=== PATIENT | female | born 1965 | race Caucasian/White ===

== ENCOUNTER 2021-08-10 06:54 | Day surgery (SDC) | payer BC ==
[2021-08-08 11:43] VITALS: BMI 37.4
[~2021-08-10 06:54] MED LIST: LACTATED RINGERS 1,000 ML IV SCH
[2021-08-10 07:33] VITALS: RESP 16; TEMP 97.1
[2021-08-10 07:43] LABS: Glucose,Whole Blood 116 mg/dL (75-99)
[2021-08-10] MEDS ORDERED: LACTATED RINGERS 1,000 ML IV ONE (07:43)
[2021-08-10] MEDS ORDERED: LIDOCAINE 1% INJ 10MG/ML (20 ML MDV) ONE (07:45)
[2021-08-10] MEDS ORDERED: PROPOFOL 10 MG/ML 20 ML VIAL IV ONE (07:45)
--- NOTE | 2021-08-10 07:59 | P.PCN ---
Date of Procedure: 08/10/21 Procedure(s) Performed: BRIEF HISTORY: Patient is a 56-year-old pleasant white female scheduled for an elective colonoscopy as a part of screening for colorectal neoplasia. PROCEDURE PERFORMED: Colonoscopy. PREOPERATIVE DIAGNOSIS: Screening for colon cancer. IV sedation per Anesthesia. PROCEDURE: After informed consent was obtained, the patient, was brought into the endoscopy unit. IV sedation was administered by Anesthesia under continuous monitoring. Digital rectal examination was normal. Initially the Olympus CF-160 flexible video colonoscope was then inserted in the rectum, gradually advanced into the cecum without any difficulty. Careful examination was performed as the scope was gradually being withdrawn. Ileocecal valve and the appendiceal orifice were visualized and appeared normal. Prep was excellent. Mucosa of the cecum, ascending colon, transverse colon, descending colon, sigmoid colon, and rectum appeared normal. Scattered sigmoid diverticulosis. Retroflexion was performed in the rectum and no lesions were seen. The patient tolerated the procedure well. IMPRESSION: Normal-appearing colon from rectum to cecum no evidence of colorectal neoplasia . Scattered sigmoid diverticulosis. RECOMMENDATIONS: Findings of this examination were discussed with the patient as well as a family.. She was advised to have a repeat screening colonoscopy in 10 years
[2021-08-10 08:06] VITALS: BP 146/89; PULSE 60
== END 2021-08-10 08:38 | disposition home or self-care (01) ==
LOC: ORWHC2ENDO 06:54
PROVIDERS: ATTEND Internal Medicine Gastroenterology
DX: Z12.11 Encounter for screening for malignant neoplasm of colon (principal); K57.30 Diverticulosis of large intestine without perforation or abscess without bleeding; E78.5 Hyperlipidemia, unspecified; E11.9 Type 2 diabetes mellitus without complications; Z79.84 Long term (current) use of oral hypoglycemic drugs; Z79.82 Long term (current) use of aspirin; Z79.899 Other long term (current) drug therapy; Z91.018 Allergy to other foods
CPT/HCPCS: J2001; J2704; G0121

== ENCOUNTER → 2021-08-29 | Outpatient (CLI) | payer BC ==
--- NOTE | 2021-08-30 13:47 | MM ---
Reason for exam: screening (asymptomatic). Last mammogram was performed 15 years and 8 months ago. Physical Findings: A clinical breast exam by your physician is recommended on an annual basis and results should be correlated with mammographic findings. MG 3D Screening Mammo W/Cad Bilateral CC and MLO view(s) were taken. Prior study comparison: August 08, 2005, bilateral screening mammogram w/CAD. The breast tissue is heterogeneously dense. This may lower the sensitivity of mammography. There are benign appearing round calcifications bilaterally. There is chronic nodularity in the left axilla, stable. There is no discrete abnormality. ASSESSMENT: Benign, BI-RAD 2 RECOMMENDATION: Routine screening mammogram of both breasts in 1 year.
== END | disposition home or self-care (01) ==
LOC: RADMAMWWP 15:36
PROVIDERS: ATTEND Family Medicine
DX: Z12.31 Encounter for screening mammogram for malignant neoplasm of breast (principal)
CPT/HCPCS: 77063; 77067

== ENCOUNTER → 2022-05-14 | Outpatient (CLI) | payer BC ==
[2022-05-14 22:28] LABS: Basophils # (A) 0.05 X 10*3/uL (0.00-0.10); Basophils % (A) 0.7 %; Eosinophils # (A) 0.13 X 10*3/uL (0.04-0.35); Eosinophils % (A) 1.9 %; HCT 41.2 % (37.2-46.3); HGB 12.7 g/dL (12.0-15.0); Immature Grans, Automated 0.3 %; Lymphocytes # (A) 1.95 X 10*3/uL (0.90-5.00); Lymphocytes % (A) 28.8 %; MCHC 30.8 g/dL (32.0-37.0); MCV 94.1 fL (80.0-97.0); Mean Platelet Volume 10.1 fL (9.5-12.2); Monocytes # (A) 0.42 X 10*3/uL (0.20-1.00); Monocytes % (A) 6.2 %; NRBC Per 100 WBC 0 /100 WBCS (0.0-0.0); Neutrophils # (A) 4.21 X 10*3/uL (1.80-7.70); Neutrophils % (A) 62.1 %; Platelet Count 330 X 10*3/uL (140-440); RBC 4.38 X 10*6/uL (4.10-5.20); RDW 13.2 % (11.5-14.5); WBC 6.78 X 10*3/uL (4.50-10.00)
[2022-05-14 22:34] LABS: Anion Gap 9.9 mmol/L (10.00-18.00); Carbon Dioxide 26.1 mmol/L (20.0-27.5)
== END | disposition home or self-care (01) ==
LOC: LABPAT 15:13
PROVIDERS: ATTEND Orthopaedic Surgery Hand Surgery
DX: Z01.812 Encounter for preprocedural laboratory examination (principal); R22.31 Localized swelling, mass and lump, right upper limb
CPT/HCPCS: 80051; 85025

== ENCOUNTER 2022-05-22 08:10 | Day surgery (SDC) | payer BC ==
--- NOTE | 2022-05-20 09:14 | P.HPOR ---
History of Present Illness H&P Date: 05/20/22 Chief Complaint: Right middle finger soft tissue mass Subjective: This is a 56 year old female that presents today for initial evaluation regarding a right middle finger soft tissue mass that has been present for 4 years. She first noticed the cyst after a burn with a soldering tool. SInce then she states she has had this blister type mass on the dorsal aspect of the right middle finger. It causes her occasional discomfort and limits range of motion. Physical Examination: RUE: AIN/PIN/Radial/Ulnar/Median motor intact. Radial/Ulnar/Median SILT. 2+/4 Radial/Ulnar pulses palpated. 5/5 APB, 5/5 FDI. Negative Finkelsteins, negative CMC grind, negative Durkan's compression. 5x5mm cystic mass that transilluminates present on dorsal aspect of right middle finger overlying DIP joint. Imaging: X-Rays of the right middle finger demonstrate DIP joint arthritis with bone spurring. Impression: 1.) Right middle finger soft tissue mass, possible mucous cyst. Plan: Diagnosis and treatment options were discussed with the patient. She has failed conservative treatment of the mass and wishes to have it taken out. Risks and benefit of surgery including bleeding, infection, damage to surrounding tissue, need for further surgery, residual numbness were discussed and the patient wished to go forward with surgery. Surgery will be scheduled in the near future. -Bahman Arauz DO Orthopedic Hand/Upper Extremity Surgeon Medications and Allergies Home Medications Medication Instructions Recorded Confirmed Type Aspirin [Adult Low Dose Aspirin EC] 81 mg PO DAILY 08/08/21 08/08/21 History Atorvastatin [Lipitor] 40 mg PO DAILY 08/08/21 08/08/21 History Cetirizine HCl 10 mg PO DAILY 08/08/21 08/08/21 History Cholecalciferol [Vitamin D3 (25 50 mcg PO DAILY 08/08/21 08/08/21 History Mcg = 1000 Iu)] metFORMIN HCL 500 mg PO BID 08/08/21 08/08/21 History Allergies Allergy/AdvReac Type Severity Reaction Status Date / Time sesame oil Allergy Rash/Hives Verified 08/10/21 07:28 tree nut [Pecan] Allergy Sores on Verified 08/10/21 07:28 tongue walnut Allergy Sores on Verified 08/10/21 07:28 tongue Physical Examination Osteopathic Statement: *. No significant issues noted on an osteopathic structural exam other than those noted in the History and Physical/Consult.
[~2022-05-22 08:10] MED LIST changes: +DEXAMETHASONE SOD PHOSPHATE 4 MG/ML 1 ML VIAL IV ONE; +ONDANSETRON 4 MG/2 ML VIAL IVP ONE; +fentaNYL (PF) 50 MCG/ML 2 ML AMP IV PRN
[2022-05-22 08:35] VITALS: RESP 16; TEMP 97.3
[2022-05-22 08:44] LABS: Glucose,Whole Blood 88 mg/dL (70-110)
[2022-05-22] MEDS ORDERED: LIDOCAINE 1% INJ 10MG/ML (20 ML MDV) SQ ONE ×2 (08:57→09:10)
[2022-05-22] MEDS ORDERED: BUPIVACAINE (PF) 0.5% 30 ML VIAL SQ ONE ×2 (08:57→09:10)
[2022-05-22] MEDS ORDERED: MIDAZOLAM 2 MG/2 ML VIAL ONE (09:00)
[2022-05-22] MEDS ORDERED: LIDOCAINE 2% INJ 20 MG/ML (2 ML VIAL) ONE (09:00)
[2022-05-22] MEDS ORDERED: fentaNYL (PF) 50 MCG/ML 2 ML AMP ONE (09:00)
[2022-05-22] MEDS ORDERED: PROPOFOL 10 MG/ML 20 ML VIAL IV ONE (09:00)
[2022-05-22 09:56] VITALS: BP 125/78; PULSE 54
--- NOTE | 2022-05-22 10:26 | P.OP ---
Date of Procedure: 05/22/22 Preoperative Diagnosis: 1.) Right middle finger soft tissue mass 1x1cm 2.) Right middle finger DIP arthritis Postoperative Diagnosis: 1.) Right middle finger soft tissue mass 1x1cm 2.) Right middle finger DIP arthritis Procedure(s) Performed: 1.) Right middle finger soft tissue mass excision 1x1cm 2.) Right middle finger DIP arthrotomy with dorsal osteophyte excision Anesthesia: MAC Surgeon: Bahman Arauz Estimated Blood Loss (ml): 0 Pathology: none sent Condition: stable Disposition: PACU Description of Procedure: This is a 56 year old female who presents today for a right middle finger soft tissue mass excision with possible osteophyte excision and DIP joint arthrotomy who has failed conservative treatment. Risks and benefits of surgery were discussed with the patient including bleeding, damage to surrounding tissue, infection, need for further surgery as well as risks of anesthesia including pulmonary embolism and even and the patient wished to proceed with surgical intervention. The patient was seen in the pre-operative area by myself. Consent and H&P were completed and updated. The correct extremity was marked in the pre-operative area by myself and all other questions were answered. Operative Narrative: The patient was brought to the operating room by the department of anesthesia. They remained on the portable stretcher and a rolling hand table was brought to the side of the operative extremity. Pre-operative time out was performed indicating the correct patient, procedure and laterality. All in the room agreed. Pre-operative antibiotics were given prior to skin incision. The patient was then drifted off to sleep by the department of anesthesia. Digital block of the right middle finger was performed using 7cc's of a 50:50 mixture of 0.5% Bupivicaine and 1% Lidocaine. A nonsterile tourniquet was then applied to the operative extremity and the right upper extremity was then prepped and draped in normal sterile fashion. The operative extremity was the exsanguinated with an esmarch bandage and the tourniquet was inflated to 250mmHg. 15 blade scalpel was utilized to make a transverse incision overlying the mass located at the dorsal aspect of the right middle finger DIP joint. Blunt dissection was taken through subcutaneous tissues with tenotomy scissors and the mass was identified which was consisted with mucous gelatinous filled cyst coming from the radial side of the DIP joint. The mass was excised in it's entirety and arthrotomy was performed to excise the communicating stalk that extended to the DIP joint. Rongeur was used to excise a small radial dorsal osteophyte. The terminal extensor tendon was protected throughout the procedure and was intact after mass excision. The wound was the closed with 4-0 nylon suture and a soft dressing consisting of adaptic, 4x4's and kerlix wrap was p laced. Tourniquet was let down and the digit has immediate perfusion. The patient was then woken by the department of anesthesia and transferred to PACU in stable condition. Bahman Arauz D.O. Orthopedic Hand/Upper Extremity Surgeon
== END 2022-05-22 10:19 | disposition home or self-care (01) ==
LOC: OR 08:10
PROVIDERS: ATTEND Orthopaedic Surgery Hand Surgery
DX: R22.31 Localized swelling, mass and lump, right upper limb (principal); M19.041 Primary osteoarthritis, right hand; M25.741 Osteophyte, right hand; E11.69 Type 2 diabetes mellitus with other specified complication; E78.5 Hyperlipidemia, unspecified; G43.909 Migraine, unspecified, not intractable, without status migrainosus; Z79.82 Long term (current) use of aspirin; Z79.84 Long term (current) use of oral hypoglycemic drugs; Z79.899 Other long term (current) drug therapy; Z91.018 Allergy to other foods; Z91.09 Other allergy status, other than to drugs and biological substances; Z80.1 Family history of malignant neoplasm of trachea, bronchus and lung
CPT/HCPCS: 11421; 26236; J2250; J1100; J0690; J2405; J2001 ×2; J3010; J2704

== ENCOUNTER → 2023-09-17 | Outpatient (CLI) | payer OTHER ==
--- NOTE | 2023-09-18 17:29 | MM ---
Reason for Exam: Screening (asymptomatic). Last mammogram was performed 2 year(s) and 1 month(s) ago. Patient History: Menarche at age 11. First Full-Term at age 19. Postmenopausal. Patient has history of breast feeding. Risk Values: Najma 5 year model risk: 1.3%. NCI Lifetime model risk: 6.6%. Prior Study Comparison: 08/20/2005 Bilateral Diagnostic Mammogram, [facility]. 01/10/2006 Left Diagnostic Mammogram, [facility]. 08/29/2021 Bilateral Screening Mammogram, [facility]. Tissue Density: There are scattered fibroglandular densities. Findings: Analyzed By CAD. Pattern appears stable and symmetrical. Chronic nodularity is within the left breast. Focal asymmetries in the upper outer aspect left mid breast, unchanged from comparison. There are scattered punctate calcifications bilaterally. No suspicious groups of microcalcifications, spiculated or lobular masses, architectural distortion or other secondary signs of malignancy are mammographically apparent. Overall Assessment: Benign, BI-RAD 2 Management: Screening Mammogram of both breasts in 1 year. A negative mammogram report should not preclude additional follow up of suspicious palpable abnormalities. Patient should continue monthly self breast exam. A clinical breast exam by your physician is recommended on an annual basis and results should be correlated with mammographic findings. Electronically signed and approved by: Lucas Clifford D.O. Radiologis
== END | disposition home or self-care (01) ==
LOC: RADMAMWWP 17:00
PROVIDERS: ATTEND Family Medicine
DX: Z12.31 Encounter for screening mammogram for malignant neoplasm of breast (principal); Z78.0 Asymptomatic menopausal state
CPT/HCPCS: 77063; 77067

== ENCOUNTER → 2024-11-18 | Outpatient (CLI) | payer OTHER ==
--- NOTE | 2024-11-19 08:31 | MM ---
Reason for Exam: Screening (asymptomatic). Last mammogram was performed 1 year(s) and 2 month(s) ago. Patient History: Menarche at age 11. First Full-Term at age 19. Postmenopausal. Patient has history of breast feeding. Risk Values: Najma 5 year model risk: 1.3%. NCI Lifetime model risk: 6.4%. Prior Study Comparison: 01/10/2006 Left Diagnostic Mammogram, [facility]. 08/29/2021 Bilateral Screening Mammogram, [facility]. 09/17/2023 Bilateral MG 3D screening mammo w/cad, [facility]. Tissue Density: There are scattered areas of fibroglandular density. Findings: Analyzed By CAD. There are a few small circumscribed round calcifications bilaterally redemonstrated. A few benign-appearing bilateral axillary lymph nodes are again seen. There is no suspicious group of microcalcifications or new suspicious mass in either breast. Overall Assessment: Benign, BI-RAD 2 Management: Screening Mammogram of both breasts in 1 year. . Patient should continue monthly self-breast exams. A clinical breast exam by your physician is recommended on an annual basis. This exam should not preclude additional follow-up of suspicious palpable abnormalities. Note on Najma scores and lifetime risk: 1. A Najma score greater than 3% is considered moderate risk. If this is the case, consider specialist referral to assess eligibility for a risk reducing agent. 2. If overall lifetime risk for the development of breast cancer is 20% or higher, the patient may qualify for future screening with alternating mammogram and breast MRI. [facility], , 11/19/2024 7:59 AM. Electronically signed and approved by: Andi Clemens M.D.
== END | disposition home or self-care (01) ==
LOC: RADMAMWWP 16:24
PROVIDERS: ATTEND Family Medicine
DX: Z12.31 Encounter for screening mammogram for malignant neoplasm of breast (principal); R92.323 Mammographic fibroglandular density, bilateral breasts; Z78.0 Asymptomatic menopausal state
CPT/HCPCS: 77063; 77067

== ENCOUNTER → 2024-11-23 | Outpatient (CLI) | payer OTHER ==
[2024-11-23 10:51] LABS: Chol/HDL Ratio 3.23 Ratio; LDL Cholesterol,Calculated 88.9 mg/dL (0.0-131.0)
== END | disposition home or self-care (01) ==
LOC: LABWHC1 07:34
PROVIDERS: ATTEND Family Medicine
DX: Z00.00 Encounter for general adult medical examination without abnormal findings (principal)
CPT/HCPCS: 36415; 80061; 83036